=== PATIENT | female | born 2000 | race Two or more races ===

== ENCOUNTER 2019-01-27 15:50 | Emergency (ER) | payer MEDICAID ==
--- NOTE | 2019-01-27 16:06 | NUR ---
called in [facility] room. no response.
--- NOTE | 2019-01-27 16:21 | NUR ---
called in waiting room, no response.
== END 2019-01-27 16:22 | disposition left against medical advice (07) ==
LOC: ER 15:50
DX: M54.2 Cervicalgia (principal); Z53.21 Procedure and treatment not carried out due to patient leaving prior to being seen by health care provider